=== PATIENT | female | born 1990 | race African-American/Black ===

== ENCOUNTER 2020-05-28 17:56 | Emergency (ER) | payer OTHER, SELFPAY ==
[2020-05-28 18:11] VITALS: BP 121/78; PULSE 95; RESP 24; TEMP 36.1; O2SAT 100
--- NOTE | 2020-05-28 18:28 | ED.URI ---
HPI - URI/Sore Throat General Chief Complaint: Upper Respiratory Infection Stated Complaint: Cough Time Seen by Provider: 05/28/20 18:40 Source: patient and RN notes reviewed Mode of arrival: ambulatory Limitations: no limitations History of Present Illness HPI Narrative: 29-year-old female presents with concern for sore throat, cough, hoarse voice, nasal congestion, postnasal drainage, foul tasting sputum, thick nasal sputum, body aches, general malaise. Reports 2 weeks ago began having sinus congestion, drainage, reports symptoms improved for approximately 5 days but did not resolve, reports within the last 3 days she has felt worse and has lost her voice. Denies loss of sense of taste or smell MD elicited complaint: nasal congestion Related Data Home Medications Medication Instructions Recorded Confirmed medroxyprogesterone [Depo-Provera 150 mg IM [id number] 05/28/20 05/28/20 Contraceptive] Allergies Allergy/AdvReac Type Severity Reaction Status Date / Time No Known Allergies Allergy Verified 05/28/20 18:46 Review of Systems Review of Systems: Narrative: CONSTITUTIONAL: Reports malaise. Denies chills, sweats, or fever. EYES: Denies visual changes, redness, or discharge. ENT: Reports rhinorrhea, congestion, sinus pain, hoarse voice, and sore throat. CARDIOVASCULAR: Denies chest pain, palpitations, or edema. RESPIRATORY: Reports cough. Denies dyspnea. GASTROINTESTINAL: Denies abdominal pain, nausea, vomiting, diarrhea SKIN: Denies rash or itching. MUSCULOSKELETAL: Reports myalgia. NEUROLOGIC: Reports headache. All systems reviewed & are unremarkable except as noted in HPI and below PMFSH Social History Social History Gender identity (if verbalized by the patient): Female Comments At time of signature, agree with nursing past medical, surgical, social and family history. There is no relevant family history pertinent to the presenting complaint Exam Narrative: Exam Narrative: GENERAL: Well-appearing, well-nourished, and in no acute distress. HEAD: Normocephalic EYES: PERRLA, conjunctivae clear ENT: Nares clear, turbinates edematous and erythematous, sinus tenderness. Mucous membranes moist. TM pearly romero with dull light reflex bilaterally; no tragal tenderness. Oropharynx erythematous without lesions. Tonsils not enlarged and without exudate, no drooling, no trismus, uvula midline. Hoarse voice NECK: Supple. No lymphadenopathy CHEST: Clear to auscultation, breath sounds equal. No wheezing, rhonchi, rales, or stridor. No respiratory distress, speaks in full sentences. HEART: Regular rate and rhythm. No murmur heard. SKIN: Warm, dry, no rash. NEURO: Alert and oriented x3. PSYCH: Normal mood and affect Course Course Emergency Course: Patient is aware of diagnosis, understands and agrees to treatment plan. Anticipatory guidance given. Patient agrees to follow-up as directed and is aware of reasons to seek care at the emergency department. Portions of this record may have been created with voice recognition software Vital Signs Vital signs: Vital Signs Temperature 96.9 F L 05/28/20 18:11 Pulse Rate 95 05/28/20 18:11 Respiratory Rate 24 H 05/28/20 18:11 Blood Pressure 121/78 05/28/20 18:11 Pulse Oximetry 100 05/28/20 18:11 Temperature 96.9 F L 05/28/20 18:11 Pulse Rate 95 05/28/20 18:11 Respiratory Rate 24 H 05/28/20 18:11 Blood Pressure 121/78 05/28/20 18:11 Pulse Oximetry 100 05/28/20 18:11 Reviewed. MDM - URI/Sore Throat MDM Narrative Medical decision making narrative: Differential diagnosis considered: Wan virus, strep pharyngitis, allergic rhinitis, upper respiratory tract infection, sinusitis, rhinosinusitis, nasopharyngitis. viral pharyngitis, otitis media, otitis externa, pneumonia, bronchitis, viral cough syndrome, viral syndrome, and influenza. Exam findings show no acute concerns or changes; patient is non-toxic appearing and is in no distress. Patient is a
== END 2020-05-28 18:56 | disposition home or self-care (01) ==
PROVIDERS: Emergency Provider Nurse Practitioner; PCP Internal Medicine
DX: J01.90 Acute sinusitis, unspecified (principal); J40 Bronchitis, not specified as acute or chronic; Z20.822 Contact with and (suspected) exposure to COVID-19
CPT/HCPCS: 87081; 87426; 87804; 87880; 99203; C9803; G0463

== ENCOUNTER 2021-09-23 17:50 | Emergency (ER) | payer OTHER, SELFPAY ==
[2021-09-23 18:47] VITALS: BP 110/45; PULSE 91; RESP 18; TEMP 36.6; O2SAT 100
--- NOTE | 2021-09-23 20:12 | ED.GENADULT ---
HPI - General Adult General Chief complaint: Unspecified Stated complaint: back pain Time Seen by Provider: 09/23/21 20:03 History of Present Illness HPI narrative: 31-year-old female presents emergency room secondary tremors. She started to have any tremors in March. She states she been seen by a couple different hospitals. She had MRI performed. She been seen by neurosurgical and spine doctor which showed she did not have a surgical issue. She has these diffuse tremors from her entire body shakes. It even goes on when she is trying to sleep at night. She not been seen by a neurologist. She continue to try to work as a [employer]. She has 2 children at home. Denies any headache. No focal weakness. No one else in her family's had anything like this. Related Data Home Medications Medication Instructions Recorded Confirmed medroxyprogesterone 150 mg/mL 150 mg IM [id number] 05/28/20 05/28/20 intramuscular suspension Allergies Allergy/AdvReac Type Severity Reaction Status Date / Time No Known Allergies Allergy Verified 05/28/20 19:03 Review of Systems Review of Systems: CONSTITUTIONAL: Denies fever, chills, or sweats. EYES: Denies visual changes, redness, or discharge. ENT: Denies rhinorrhea, congestion, sore throat, or otalgia. CARDIOVASCULAR: Denies chest pain, palpitations, or edema. RESPIRATORY: Denies cough or dyspnea. GASTROINTESTINAL: Denies abdominal pain, nausea, vomiting, or diarrhea. GENITOURINARY: Denies dysuria or hematuria. SKIN: Denies rash or itching. MUSCULOSKELETAL: Denies back pain, joint pain, or myalgia. NEUROLOGIC: Denies headache, numbness, or weakness. Persistent diffuse tremors PSYCHIATRIC: Denies anxiety or depression. [facility] Social History Social History Gender identity (if verbalized by the patient): Female Exam Narrative: APPEARANCE: Well appearing, no pain or distress, well-nourished. Head Normocephalic and atraumatic. EYES: PERRLA/EOMI, conjunctivae clear. NOSE: Normal with no drainage EARS:TMS clear with Delacruz, with good light reflex. THROAT: Pharynx clear, no exudate. NECK: Supple. No adenopathy, no masses. RESPIRATORY: Airway patent, respirations nonlabored. Clear to auscultation bilaterally, no rales, rhonchi, wheezing. CARDIOVASCULAR: Regular rate and rhythm without murmurs, rubs, or gallops. ABDOMINAL: Soft, nontender, nondistended, no hepatosplenomegaly Musculoskeletal: Moves all extremities. Strength/ROM intact, No edema, No calf tenderness. NEURO: Alert. Cranial nerves II through XII intact. Diffuse tremors of her entire body. Is hard for her to stand and walk. This been going on for months. SKIN:: Warm, dry. Normal Color PSYCHIATRIC: Normal affect/mood, normal interaction Course Vital Signs Vital signs: Vital Signs Temperature 97.8 F 09/23/21 18:47 Pulse Rate 91 09/23/21 18:47 Respiratory Rate 18 09/23/21 18:47 Blood Pressure 110/45 L 09/23/21 18:47 Pulse Oximetry 100 09/23/21 18:47 Oxygen Delivery Room Air 09/23/21 18:47 Temperature 97.8 F 09/23/21 18:47 Pulse Rate 91 09/23/21 18:47 Respiratory Rate 18 09/23/21 18:47 Blood Pressure 110/45 L 09/23/21 18:47 Pulse Oximetry 100 09/23/21 18:47 Oxygen Delivery Room Air 09/23/21 18:47 Medical Decision Making MDM Narrative Medical decision making narrative: I talked to the patient she is already had extensive work-up and evaluation to some degree at other facilities. She has never had a definitive diagnosis. Does not sound like she is even seen a neurologist she just saw neurosurgical services. Explained to the patient has no work-up or evaluation I can do in the emergency room today this going to give us definitive answer but she needs to be seen by neurologist and will get a referral out to be seen. Vital Signs Vital Signs: Vital Signs Temperature 97.8 F 09/23/21 18:47 Pulse Rate 91 09/23/21 18:47 Respir
[2021-09-23 20:22] VITALS: BP 114/78; PULSE 90; RESP 18; O2SAT 100
== END 2021-09-23 20:30 | disposition home or self-care (01) ==
PROVIDERS: Emergency Provider Emergency Medicine
DX: R25.1 Tremor, unspecified (principal)
CPT/HCPCS: 99281

== ENCOUNTER 2023-10-30 17:23 | Emergency (ER) | payer OTHER, SELFPAY ==
[2023-10-30 17:32] VITALS: BP 100/76; PULSE 86; RESP 16; TEMP 37.3; O2SAT 99
--- NOTE | 2023-10-30 18:09 | ED.SKABFB ---
HPI - Skin/Abscess/Foreign Bdy General Chief complaint: Skin/Abscess/Foreign Body Stated complaint: Insect Bite Time Seen by Provider: 10/30/23 18:09 Source: patient Mode of arrival: ambulatory Limitations: no limitations History of Present Illness HPI narrative: 33 yo F presents with spider bite to R ankle. Reports redness and swelling. c/o itching. all systems reviewed and negative except as noted above. Related Data Home Medications Medication Instructions Recorded Confirmed medroxyprogesterone 150 mg/mL 150 mg IM [id number] 05/28/20 05/28/20 intramuscular suspension Allergies Allergy/AdvReac Type Severity Reaction Status Date / Time No Known Allergies Allergy Verified 05/28/20 19:03 Review of Systems Review of Systems: CONSTITUTIONAL: Denies fever, chills, or sweats. EYES: Denies visual changes, redness, or discharge. ENT: Denies rhinorrhea, congestion, sore throat, or otalgia. CARDIOVASCULAR: Denies chest pain, palpitations, or edema. RESPIRATORY: Denies cough or dyspnea. GASTROINTESTINAL: Denies abdominal pain, nausea, vomiting, or diarrhea. GENITOURINARY: Denies dysuria or hematuria. SKIN: Reports redness, swelling and itching to right ankle. MUSCULOSKELETAL: Denies back pain, joint pain, or myalgia. NEUROLOGIC: Denies headache, numbness, or weakness. PSYCHIATRIC: Denies anxiety or depression. All other systems reviewed are negative, except as documented in HPI. PMFSH Social History Social History Gender identity (if verbalized by the patient): Female Comments At time of signature, agree with nursing past medical, surgical, social and family history. There is no relevant family history pertinent to the presenting complaint. Exam Narrative: GENERAL: This is a well-nourished, well-developed patient, in no apparent distress. HEAD: normocephalic, atraumatic. EYES: PERRL. Sclera clear/white. Vision is grossly intact. EARS: External ears normal NOSE: External nose normal NECK: Neck supple, non-tender without lymphadenopathy, masses or thyromegaly. CARDIOVASCULAR: Regular rate and rhythm without murmurs, gallops, or rubs. RESPIRATORY: Clear to auscultation. Breath sounds equal bilaterally. No wheezes, rales, or rhonchi. SKIN: warm, Dry, intact with no suspicious lesions or rash, good texture and turgor. two small puncture wounds to R ankle, anterior aspect, with mild surrounding erythema. NEURO: awake, alert, and oriented to person, place and time. There were no obvious focal neurologic abnormalities. EXTREMITIES: No joint tenderness, effusion, or edema noted. Course Course Level of Care: Express Care Visit Vital Signs Vital signs: Vital Signs Temperature 37.3 C 10/30/23 17:32 Pulse Rate 86 10/30/23 17:32 Respiratory Rate 16 10/30/23 17:32 Blood Pressure 100/76 10/30/23 17:32 Pulse Oximetry 99 10/30/23 17:32 Oxygen Delivery Room Air 10/30/23 17:32 Temperature 37.3 C 10/30/23 17:32 Pulse Rate 86 10/30/23 17:32 Respiratory Rate 16 10/30/23 17:32 Blood Pressure 100/76 10/30/23 17:32 Pulse Oximetry 99 10/30/23 17:32 Oxygen Delivery Room Air 10/30/23 17:32 Reviewed MDM - Skin/Abscess/Foreign Bdy MDM Narrative Medical decision making narrative: Patient is aware of diagnosis, understands and agrees to treatment plan. Anticipatory guidance given. Patient agrees to follow-up as directed and is aware of reasons to seek care at the emergency department. Portions of this record may have been created with voice recognition software Discharge Plan Discharge Clinical Impression: Insect bite (nonvenomous), right ankle, initial encounter Patient Disposition: Home, Self-Care Condition: Stable Instructions: Antibiotic Form, Insect Bite or Sting (ED) Additional Instructions: take antibiotic as prescribed until gone. Apply steroid cream 2 to 3 times a day sparin
== END 2023-10-30 18:20 | disposition home or self-care (01) ==
PROVIDERS: Emergency Provider Nurse Practitioner Family
DX: S90.561A Insect bite (nonvenomous), right ankle, initial encounter (principal); W57.XXXA Bitten or stung by nonvenomous insect and other nonvenomous arthropods, initial encounter
CPT/HCPCS: 99213; G0463

== ENCOUNTER 2024-12-17 04:31 | Emergency (ER) | payer SELFPAY ==
--- NOTE | ~2024-12-17 | CT_ITS ---
CT ABDOMEN AND PELVIS WITHOUT CONTRAST Clinical History: dysuria, R flank/RLQ pain , hx of kidney stone Comparison: None Technique: Unenhanced axial images lung bases to symphysis pubis Coronal, sagittal reformats CT images acquired with automatic exposure control for dose reduction DLP: 174 mGy-cm Findings: Without intravenous contrast, sensitivity for detecting visceral parenchymal abnormalities decreased. Lung bases: Clear. Visualized heart and pericardium: Unremarkable. Liver: Unremarkable. Gallbladder: Unremarkable. Spleen: Unremarkable. Pancreas: Unremarkable. Adrenal glands: Unremarkable. Kidneys: Right kidney- No hydronephrosis. No renal stones. Left kidney- No hydronephrosis. Tiny stone versus focal calcification within cyst. Distal esophagus/stomach: Unremarkable. Small bowel loops: Normal caliber and wall thickness. Colon: Normal caliber and wall thickness. Normal RLQ appendix. Nodes: No enlarged nodes. Peritoneum: No ascites. No free intraperitoneal air. Urinary bladder: Unremarkable. Uterus: Unremarkable. Adnexa: No masses. Bones: No acute bony abnormality. Soft tissues: Small umbilical hernia with fat. Unopacified abdominal aorta: No aneurysmal dilatation. IMPRESSION: 1. No acute findings. 2. Tiny stone versus calcification within cyst of left kidney. Reviewed, dictated and finalized at location R. IC DIRECTOR
--- OUTSIDE RECORDS SUMMARY | 2024-12-17 04:33 | XMS_ITS | Patient Health Record ---
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 Name Role Phone Joyce Mendez Primary Care Provider [phone] Allergies No Known Allergies Reason For Referral No Information Social History Tobacco Use: Social History Observation Description Date Details (start date - stop date) Unknown Sex Assigned At : Social History Observation Description Sex Assigned At Female Dont use, Tobacco Use/Smoking Question Answer Notes Are you a Uses tobacco in other forms Additional Findings: Tobacco User e-Cigarette Problems Problem Type SNOMED Code ICD Code Onset Dates Problem Status W/U Status Risk Notes Problem Tobacco user (239444880) Nicotine dependence, unspecified, uncomplicated (F17.200) Active confirmed Problem migraine (disorder) (68236588) Migraines (G43.909) Active confirmed Problem Obesity (849500101) Obesity, unspecified classification, unspecified obesity type, unspecified whether serious comorbidity present (E66.9) Active confirmed Plan Of Treatment No Information Insurance Providers Payer Name Payer Address Payer Phone Subscriber Number Group Number Insured Name Patient Relationship to Insured Coverage Start Date Coverage End Date [employer] [address] [place] [phone] [id number] Jimi Crockett Self - patient is the insured 2 Medical (General) History Surgical History Surgery Date(Month/Year) Hospitalization History Reason Date(Month/Year) Tremors 2021
--- OUTSIDE RECORDS SUMMARY | 2024-12-17 04:33 | XMS_ITS | Clinical Summary ---
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 Name Role Phone Keshav Madrid MD Primary Care Provider [phone] Allergies No known active allergies Medications No known medications Active Problems No known active problems Family History Medical History Relation Comments None Father None Mother Relation Status Comments Father Alive Mother Alive Social History Tobacco Use Types Packs/Day Years Used Date Smoking Tobacco: Former Cigarettes 0.3 2 Smokeless Tobacco: Never Alcohol Use Standard Drinks/Week Comments Yes 0 (1 standard drink = 0.6 oz pur e alcohol) Comments No Sex and Gender Information Value Date Recorded Sex Assigned at Female 08/04/2024 5:01 PM CDT Legal Sex Female 7:21 PM CDT Gender Identity Not on file Sexual Orientation Not on file Last Filed Vital Signs Vital Sign Reading Time Taken Comments Blood Pressure 104/67 08/04/2024 4:33 PM CDT Pulse 69 08/04/2024 4:33 PM CDT Temperature 36.6 C (97.9 F) 08/04/2024 4:33 PM CDT Respiratory Rate 14 08/04/2024 4:33 PM CDT Oxygen Saturation 97% 08/04/2024 4:33 PM CDT Inhaled Oxygen Concentration - - Weight 61.2 kg (135 lb) 08/04/2024 4:33 PM CDT Height 157.5 cm (5' 2) 08/04/2024 4:33 PM CDT Body Mass Index 24.69 08/04/2024 4:33 PM CDT Plan of Treatment Health Maintenance Due Date Last Done Comments Annual Physical 09/20/1995 COVID-19 Vaccine ( season) 2024 11/04/2021, 03/29/2021, 11/12/2020 Influenza Adult (#1) 2024 11/01/2015, 11/11/19 12 Cervical Cancer Screening Pap Smear (Age 30 to 64) Every 3 Years 10/28/2025 10/28/2022 DTaP, Tdap and Td Vaccines (8 - Td or Tdap) 12/20/2025 12/21/2015, 11/11/2011, 06/03/2007, Additional history exists Cervical Cancer Screening Pap with HPV Testing (Age 30 to 64) Every 5 Years 10/29/2027 10/28/2022 Cervical Cancer Screening with HPV 10/29/2027 Meningococcal Vaccine Aged Out 06/15/2007 No yinka caryl eligible based on patient's age to complete this topic HPV Vaccines Completed 04/23/2018, 110 03/2017, 10/06/2016, Additional history exists Hepatitis B Vaccines Completed 03/08/2022, 09/16/1994, 09/18/1993, Additional history exists Hepatitis C Completed 10/28/2022 Hepatitis A Vaccines Aged Out No long er eligible based on patient's age to complete this topic Meningococcal B Vaccine Aged Out No l onger eligible based on patient's age to complete this topic Pneumococcal Vaccine: Pediatrics (0 to 5 Years) and At-Risk Patients (6 to 49 Years) Aged Out No longer eligible based on patient's age to complete this topic RSV Immunizations Under 20 Months Aged Out No longer eligible based on patient's age to complete this topic Insurance [employer] MEDICAID Care Teams Acetylene Cylinder Packing Mixer Relationship Specialty Start Date End Date Keshav Madrid MD [address] [place] [address] PCP - General 08/21/15
--- OUTSIDE RECORDS SUMMARY | 2024-12-17 04:34 | XMS_ITS | Clinical Summary ---
Author Organization [facility] Address [address] [place] [address] Care Team Providers Care Seismic Computer Name Role Phone Fermín Gibson MD Primary Care Provider [phone] Source Comments [facility],non-owned Affiliates and Associated Physician Practices is amultiple site organization consisting of ambulatory clinics and hospital sitesin [place], [place], [place] and [place]. This disclosure is being madepursuant to the Care Everywhere program and may not contain all information available regarding this patient. Last updated 17.[facility] Allergies No known active allergies Medications * Be aware that medications may not be up to date on this document. Alwaysverify current medications with the patient. medroxyPROGESTER one (Depo-Provera) 400 MG/ML injectionIndicat ions:Well woman exam Inject 0.38 mL into muscle Every 90 days 0.38 mL 3 10/28/2022 Active Active Problems Patient Care Coordination No te Formatting of this note migh t be different from the original. [facility] [place] Problem Noted Date Diagnosed Date Antiphospholipid syndrome in 6 Overview (09/10/2015): Work up negative on 09/03/2015 Resolved Problems Problem Noted Date Diagnosed Date Resolved Date Encounter for ultrasound to check growth 02/15/2016 11/09/2018 Breech presentation 02/15/2016 11/10/19 19 Positive GBS test 02/05/2016 11/09/2018 Encounter for anatomic survey 11/02/2015 12/21/2015 Encounter for screening for risk of pre-term labor 11/02/2015 11/09/2018 Sequential Screen 09/06/2015 11/09/2018 Overview (10/10/2015): 1st look on 09/03/2015 Result: 1:10,000 for DS and 1:10,000 for Trisomy 18 2nd blood draw ideal dates: -10/06/2015 Letter sent 09/06/2015 Final result: 1:10,000 DS, 1:10,000 T18, 1:6,000 ONTD Letter sent 10/10/2015 Supervision of other high-risk 08/29/2015 11/09/2018 Overview (12/21/2015): PNL: B+/I/-/- Ab: Neg GCT: 131, patient come in on Saturday 12/23 for 3 hour GTT HIV: NR GBS: Datin wk US H/H/Plt: 11.3/32.5/165 Hgb Elec: wnl UDS: Negative SS: low risk CF: Negative Pap: NILM 08/2015 Gc/Chl: negative 11/19 UCx: Negative Breast/Bottle: breast Family Planning: LARC GERD (gastroesophageal reflux disease) 08/29/2015 11/09/2018 Encounter for (NT) nuchal translucency scan 12/21/2015 Normal labor 11/09/2018 care following vaginal delivery 11/09/2018 Immunizations Immunization Administration Dates Next Due Human Papilloma Virus Ninevalent Vaccine 019,12/11/2017,10/06/2016 INFLUENZA VACCINE, QUADR. (F LUZONE; FLULAVAL; FLUARIX; AFLURIA QUADRIVALENT; 6MO+), 0.5 ML (IIV4) 11/01/2015 TDAP (7yrs+) 12/21/2015 Family History Medical History Relation Name Comments Sickle Cell Anemia Maternal Grandmother Twins Mother Relation Name Status Comments Maternal Grandmother Mother Social History Tobacco Use Types Packs/Day Years Used Date Smoking Tobacco: Every Day Cigarettes Smokeless Tobacco: Never Alcohol Use Standard Drinks/Week Comments No 0 (1 standard drink = 0.6 oz pur e alcohol) Comments No Sex and Gender Information Value Date Recorded Sex Assigned at Not on file Legal Sex Female 5:36 AM MAIL MANAGER Gender Identity Not on file Sexual Orientation Not on file Last Filed Vital Signs Vital Sign Reading Time Taken Comments Blood Pressure 115/79 10/23/2023 12:52 PM CDT Pulse 73 10/23/2023 12:52 PM CDT Temperature 36.9 C (98.5 F) 12/31/2021 9:51 AM MAIL MANAGER Respiratory Rate 18 12/31/2021 9:51 AM MAIL MANAGER Oxygen Saturation 100% 12/31/2021 9:51 AM MAIL MANAGER Inhaled Oxygen Concentration - - Weight 58.5 kg (129 lb) 10/23/2023 12:52 PM CDT Height 157.5 cm (5' 2) 12/31/2021 9:51 AM MAIL MANAGER Body Mass Index 23.59 12/31/2021 9:51 AM MAIL MANAGER Plan of Treatment Health Maintenance Due Date Last Done Comments HEPATITIS B VACCINE (1 of 3 - 19+ 3-dose series) 09/20/2011 PNEUMOCOCCAL VACCINE (1 of 2 - PCV) 09/20/2011 COVID-19 VACCINE (3 - Modern a risk series) 05/24/2020 04/26/2020, 03/02/2020 DEPRESSION SCREENING 02/10/2024 INFLUENZA VACCINE (#1) 2024 11/01/2015 DTAP/TDAP/TD VACCINES (2 - T d or Tdap) 12/20/2025 12/21/2015 PAP with HPV 10/29/2027 10/28/2022 ZOSTER VACCINE (1 of 2) 2042 HPV VACCINE Completed 04/23/2018, 12/11/2017, 10/06/2016 HEPATITIS C SCREENING Completed 10/28/2022 HIV SCREENING Completed 10/28/2022, 05/10/2021, 11/30/2015 HIB VACCINE Aged Out No longer eligi ble based on patient's age to complete this topic MENINGOCOCCAL (Group B) VACCINE SHARED DECISION-MAKING Aged Out No longer eligible based on patient's age to complete this topic MENINGOCOCCAL GROUPS A/C/Y/W VACCINE Aged Out No longer eligible b ased on patient's age to complete this topic Procedures Procedure Name Priority Date/Time Associated Diagnosis Comments HEPATITIS C ANTIBODY Routine 10/28/2022 11:47 AM CDT Well woman exam PAP IG LB+HPV APTIMA Routine 10/28/2022 11:47 AM CDT Well woman exam HIV-1 HIV-2 ANTIBODY + HIV P24 AG PANEL Routine 10/28/2022 11:47 AM CDT Well woman exam from Last 3 Months or Most Recently Relevant to Health Maintenance Results * PAP IG LB+HPV APTIMA (10/28/2022 11:47 AM CDT) Diagnosis Comment 10/31/2022 2:10 PM CDT [facility] ([facility]) Comment:NEGATIVE FOR INTRAEP ITHELIAL LESION OR MALIGNANCY. Specimen Adequacy Comment 023 2:10 PM CDT [facility] ([facility]) Comment: Satisfactory for evaluation. Endocervical and/or squamous metaplastic cells (endocervical component) are present. Performed by Comment 10/31/2022 2:10 PM CDT [facility] ([facility]) Comment:Flavia Guerra, Cyto technologist (ASCP) Comment . 10/31/2022 2:10 PM CDT [facility] ([facility]) Note Comment 10/31/2022 2:10 PM CDT [facility] ([facility]) Comment: The Pap smear is a screening test designed to aid in the detection of premalignant and malignant conditions of the uterine cervix. It is not a diagnostic procedure and should not be used as the sole means of detecting cervical cancer. Both false-positive and false-negative reports do occur. IGLBP CPT Code Automation TNP 10/31/2022 2:10 PM CDT [facility] ([facility]) Comment: The Thin Prep(R) Computer Meteorologist was unable to read this specimen. Therefore a manual review was performed. Human papillomavirus Aptima Negative Negative 10/31/2022 2:10 PM CDT [facility] ([facility]) Comment: This nucleic acid amplification test detects fourteen high-risk HPV types (16,18,31,33,35,39,45,51,52,56,58,59,66,68) without differentiation. Pathology/Cytolo gy PART OF UTERINE CERVIX / Unknown Collection / Unknown 10/28/2022 11:47 AM CDT 10/28/2022 12:12 PM CDT [facility] - 10/31/2022 2:10 PM CDT Performed at: 01 - [address] [id number] Buffer Chrome: Jazmine Méndez MD, Phone: [phone] Performed at: 02 - [address] [id number] Buffer Chrome: Jazmine Méndez MD, Phone: [phone] Specimen Comment: No. of containers..01 ThinPrep Vial us Aurora Zhao MD LAB - PATHOLOGY/CYTOLOGY ORDERAB LES Final Result [facility]) [address] [place] [address] * HIV-1 HIV-2 ANTIBODY + HIV P24 AG PANEL (10/28/2022 11:47 AM CDT) HIV1/2 Ab + P24 Ag Non Reactive Non Reactive 10/28/2022 1:00 PM CDT [facility] Blood BLOOD SPECIMEN / Unknown Venipuncture / Unknown 10/28/2022 11:47 AM CDT 10/28/2022 12:11 PM CDT Narrative [facility] - 10/28/2022 1:00 PM CDT No Laboratory evidence of HIV infection. us Aurora Zhao MD LAB - CHEMISTRY ORDERABLES Final Result [facility] [address] [place] [address] * HEPATITIS C ANTIBODY (10/28/2022 11:47 AM CDT) HCV Antibody Screen Non Reactive Non Reactive 10/28/2022 1:01 PM CDT [facility] Blood BLOOD SPECIMEN / Unknown Venipuncture / Unknown 10/28/2022 11:47 AM CDT 10/28/2022 12:11 PM CDT Narrative [facility] - 10/28/2022 1:01 PM CDT Non Reactive - Antibodies to Hepatitis C virus (HCV) were not detected, result does not exclude early acute HCV infection. Aurora Zhao MD LAB - CHEMISTRY ORDERABLES Final Result [facility] [address] [place] [address] from Last 3 Months or Most Recently Relevant to Health Maintenance Insurance MEDICAID [employer] [place] Advance Directives * Full Code (Latest Code Status on File) Date Activated Date Inactivated Comments 02/29/2016 11:17 PM 03/01/2016 2:05 PM * Full Code Date Activated Date Inactivated Comments 02/27/2016 10:12 PM 02/29/2016 11:17 PM * Full Code Date Activated Date Inactivated Comments 02/18/2016 7:35 AM 02/18/2016 3:11 PM * Full Code Date Activated Date Inactivated Comments 12/21/2015 12:27 PM 12/21/2015 4:20 PM * Full Code Date Activated Date Inactivated Comments 11/19/2015 11:00 AM 11/19/2015 2:06 PM Care Teams Seismic Computer Relationship Specialty Start Date End Date Fermín Gibson MD [address] [place] [address] [place] [address] [phone] PCP - General 05/27/21
[2024-12-17 04:48] VITALS: BP 112/81; RESP 18; O2SAT 100
[2024-12-17 04:56] VITALS: BP 112/81; PULSE 81; RESP 16; TEMP 36.4; O2SAT 100
[2024-12-17] MEDS: HYDROmorphone HCL INJ (*CRX) 1 MG/ML SYR 0.5 MG IV PUSH (05:12)
[2024-12-17 05:14] LABS: Hematocrit 34.3 % (37.0-47.0); Hemoglobin 11.2 g/dL (12.0-15.0); Immature Granulocyte Percent A 0.1 % (0-0.5); Lymphocytes Absolute Auto 1.57 K/mm3 (0.9-3.2); Mean Corpuscular HGB Conc 32.7 g/dl (32-36); Mean Corpuscular Hemoglobin 30.3 pg (26-34); Mean Corpuscular Volume 92.7 fl (80-100); Nucleated Red Blood Cells Absolute Auto 0.000 K/mm3 (0.0-0.012); Nucleated Red Blood Cells Perc 0.0 % (0.0-0.2); Platelet Count Result 169 k/mm3 (150-375); Red Blood Count 3.70 M/mm3 (4.2-5.4); White Blood Count 6.7 K/mm3 (4.5-10.0)
--- NOTE | 2024-12-17 05:21 | ED_ITS ---
HPI - General Adult General Chief complaint: Urogenital-Female Stated complaint: flank pain Time Seen by Provider: 12/17/24 04:49 History of Present Illness HPI narrative: This 34-year-old female presenting urinary symptoms. Patient has dysuria and urinary urgency. She has some suprapubic tenderness. She denies fevers, flank pain. Nausea vomiting or diarrhea. She reports a remote history of kidney stones. Related Data Home Medications ?Medication ?Instructions ?Recorded ?Confirmed ?Last Taken ?Type medroxyprogesterone 150 mg/mL 150 mg IM [id number] 05/2805/28/20 Unknown History intramuscular suspension Allergies Allergy/AdvReac Type Severity Reaction Status Date / Time No Known Allergies Allergy Verified 05/28/20 19:03 [facility] Social History Social History Gender identity (if verbalized by the patient): Female Exam 2 Narrative: APPEARANCE: No apparent distress. Head: atraumatic. EYES: EOMI, NOSE: Atraumatic NECK: Trachea midline RESPIRATORY: No increased rate of breathing clear to auscultation CARDIOVASCULAR: RRR, ABDOMINAL: Mild suprapubic tenderness, no guarding or rebound, no CVA tenderness MUSCULOSKELETAl: No obvious deformities NEURO: Alert. Moving 4/4 extremities SKIN:: Warm, dry. Normal color PSYCHIATRIC: Normal affect Course Vital Signs Vital signs: Vital Signs Respiratory Rate 18 12/17/24 04:48 Blood Pressure 112/81 12/17/24 04:48 Pulse Oximetry 100 12/17/24 04:48 Oxygen Delivery Room Air 12/17/24 04:48 Temperature 97.6 F 12/17/24 04:56 Pulse Rate 81 12/17/24 04:56 Respiratory Rate 16 12/17/24 04:56 Blood Pressure 112/81 12/17/24 04:56 Pulse Oximetry 100 12/17/24 04:56 Oxygen Delivery Room Air 12/17/24 04:48 Medical Decision Making [facility] Narrative Medical decision making narrative: -Course: 34-year-old female presenting with urinary symptoms. Urine indicative of infection. CT ordered to evaluate for kidney stones. If CT is negative patient can be discharged antibiotics. Follow up with primary care physician. Given return precautions. -DDX includes but is not limited to: UTI, pyelo kidney stone Vital Signs Vital Signs: Vital Signs Respiratory Rate 18 12/17/24 04:48 Blood Pressure 112/81 12/17/24 04:48 Pulse Oximetry 100 12/17/24 04:48 Oxygen Delivery Room Air 12/17/24 04:48 Temperature 97.6 F 12/17/24 04:56 Pulse Rate 81 12/17/24 04:56 Respiratory Rate 16 12/17/24 04:56 Blood Pressure 112/81 12/17/24 04:56 Pulse Oximetry 100 12/17/24 04:56 Oxygen Delivery Room Air 12/17/24 04:48 Lab Data 12/17/24 05:01 12/17/24 05:01 Labs: Lab Results 12/17/24 12/17/24 Range/Units 04:55 05:01 WBC 6.7 (4.5-10.0) K/mm3 RBC 3.70 L (4.2-5.4) M/mm3 Hgb 11.2 L (12.0-15.0) g/dL Hct 34.3 L (37.0-47.0) % MCV 92.7 (80-100) fl MCH 30.3 (26-34) pg MCHC 32.7 (32-36) g/dl RDW 11.7 (11.5-14.5) % Plt Count 169 (150-375) k/mm3 MPV 10.7 H (7.4-10.4) fl Immature Gran % (Auto) 0.1 (0-0.5) % Neut % (Auto) 67.1 (45.5-73.1) % Lymph % (Auto) 23.4 (18.3-44.2) % [place] % (Auto) 8.1 (2.6-8.5) % Eos % (Auto) 0.9 (0-4.4) % Baso % (Auto) 0.4 (0.2-1.2) % Lymph # (Auto) 1.57 (0.9-3.2) K/mm3 [place] # (Auto) 0.5 (0.1-0.6) K/mm3 Eos # (Auto) 0.1 (0-0.3) K/mm3 Baso # (Auto) 0.0 (0.0-0.1) K/mm3 Abs Immat Gran (auto) 0.01 (0.00-0.031) K/mm3 Absolute Neuts (auto) 4.5 (1.3-6.7) K/mm3 Absolute Nucleated RBC 0.000 (0.0-0.012) K/mm3 Nucleated RBC % 0.0 (0.0-0.2) % Sodium 137 (137-145) mmol/L Potassium 3.6 (3.4-5.0) mmol/L Chloride 103 (98-107) mmol/L Carbon Dioxide 28 (22-30) mmol/L Anion Gap 6 (4-12) mmol/L BUN 10 (7-17) mg/dL Creatinine 0.72 (0.7-1.0) mg/dL Estim Creat Clear Calc 86 ml/min Estimated GFR > 60 (59 - ) Glucose 87 (65-110) mg/dL Calcium 9.0 (8.4-10.2) mg/dL Total Bilirubin 0.4 (0.2-1.3) mg/dL AST 28 (14-36) U/L ALT 16 (6-35) U/L Alkaline Phosphatase 53 (38-126) U/L Total Protein 7.2 (6.3-8.2) g/dL Albumin 4.2 (3.5-5.1) g/dL Urine Color Yellow (Yellow) Urine Appearance Clear (Clear) Urine pH 7.5 (5.0-9.0) Ur Specific [place] 1.009 (1.001-1.035) Urine Protein 1+ H (Negative) mg/dL Urine Glucose (UA) Negative (Negative) mg/dL Urine Ketones Negative (Negative) mg/dL Ur Blood (Man) 3+ H (Negative) Urine Nitrate Negative (Negative) Urine Bilirubin Negative (Negative) Urine Urobilinogen 0.2 (<2.0) mg/dL Leukocyte Esterase Rfl 3+ H (Negative) JOSHUA/UL Urine RBC 51-100 H (0-2) /hpf Urine WBC >100 H (0-3) /hpf Ur Squamous Epith Cells None seen (Few) /hpf Urine Bacteria None seen /hpf Urine Casts 3-5 Urine Test Negative Discharge Plan Discharge Clinical Impression: Urinary tract infection Patient Disposition: Home Condition: Stable Instructions: Antibiotic Form, Urinary Tract Infection in Women (ED) Additional Instructions: You were seen in the ED for a urinary tract infection. Please take Keflex to treat the infection. Use Pyridium for pain. Follow-up with your primary care physician in 3-5 days. If you develop fevers, flank pain or your condition is getting worse please return to the ED for re-evaluation. Patient Language: Lebanese Prescriptions: New cephalexin 500 mg capsule 500 mg PO Q12H Qty: 10 0RF phenazopyridine [Pyridium] 200 mg tablet 200 mg PO TID Qty: 6 0RF No Action medroxyprogesterone [Depo-Provera Contraceptive] 150 mg/mL Suspension 150 mg IM [id number] doxycycline hyclate 100 mg capsule 100 mg PO BID 7 Days Qty: 14 0RF triamcinolone acetonide 0.1 % cream 1 applic topical BID PRN (Reason: insect bite) Qty: 15 0RF Follow-up/Referrals: PHYSICIAN,PHYSICIAN PRACTICE MARKET MANAGER [Primary Care Provider, Internal Medicine]
[2024-12-17 05:26] LABS: Add Urine Microscopic? YES; Appearance Urine Clear (Clear); Glucose Urine UA Negative (Negative); Leukocyte Esterase Ur 3+ LEU/UL (Negative); Nitrate Urine Negative (Negative); Specific Grav Ur 1.009 (1.001-1.035)
[2024-12-17 05:31] LABS: Pregnancy On Board Control Positive
[2024-12-17 05:33] LABS: Alanine Aminotransferase 16 U/L (6-35); Albumin Level 4.2 g/dL (3.5-5.1); Alkaline Phosphatase 53 U/L (38-126); Anion Gap 6 mmol/L (4-12); Aspartate Amino Transferase 28 U/L (14-36); Bilirubin,Total 0.4 mg/dL (0.2-1.3); Blood Urea Nitrogen 10 mg/dL (7-17); Calcium 9.0 mg/dL (8.4-10.2); Carbon Dioxide 28 mmol/L (22-30); Chloride 103 mmol/L (98-107); Estimated CRCL calculation 86 ml/min; Estimated Glomerular Filt Rate > 60; Glucose 87 mg/dL (65-110); Potassium 3.6 mmol/L (3.4-5.0); Sodium 137 mmol/L (137-145); Total Protein 7.2 g/dL (6.3-8.2)
[2024-12-17] MEDS: cefTRIAXone 1 GM in SODIUM CHLORIDE 0.9% IV 50 ML 100 ML IVPB (06:04)
== END 2024-12-17 07:10 | disposition home or self-care (01) ==
PROVIDERS: Emergency Provider Emergency Medicine
DX: N39.0 Urinary tract infection, site not specified (principal); Z87.442 Personal history of urinary calculi
CPT/HCPCS: 36415; 74176; 80053; 81001; 81025; 85025; 87086; 87186; 96365; 96375; 99284; J0696; J1171